=== PATIENT | male | born 1955 | race African-American/Black ===

== ENCOUNTER 2019-06-15 11:19 | Emergency (ER) | payer OTHER ==
[~2019-06-15] VITALS: Ht 165.1 cm; Wt 72.6 kg
[2019-06-15 11:25] VITALS: TEMP 98.2
[2019-06-15 12:22] VITALS: BP 128/84
== END 2019-06-15 12:23 | disposition home or self-care (01) ==
LOC: ED 11:19
DX: J06.9 Acute upper respiratory infection, unspecified (principal)
CPT/HCPCS: 87502; 87651; 99283